=== PATIENT | female | born 1995 | race Caucasian/White ===

== ENCOUNTER 2016-08-24 10:23 | Emergency (ER) | payer OTHER ==
[~2016-08-24] VITALS: Ht 167.6 cm; Wt 74.3 kg
[~2016-08-24 10:23] MED LIST: [UNRECOGNIZED DRUG - OTHER] PO
[2016-08-24 10:26] VITALS: TEMP 37.7; Ht 167.6 cm; Wt 74.3 kg
[2016-08-24] MEDS ORDERED: BCPILLS PO (10:45)
[2016-08-24] MEDS ORDERED: CEPH500T PO (10:45)
[2016-08-24] MEDS ORDERED: KETOROLAC TROMETHAMINE 30 MG/ML VIAL IV STA (10:46)
[2016-08-24] MEDS ORDERED: SODIUM CHLORIDE 0.9% 500ML 500 ML IV STA (10:55)
[2016-08-24] MEDS ORDERED: OPTIRAY 320 IV PRN (11:15)
[2016-08-24 11:20] LABS: BASO % 0.5 %; BASO ABS # 0.02 K/uL (0-0.2); COMPLETE YES; EOS % 0.2 %; HEMATOCRIT 36.2 % (37-47); IG% 0.2 %; LYMPH % 19.8 %; LYMPH ABS # 0.82 K/uL (1.2-3.4); MEAN CORPUSCULAR HEMOGLOBIN 29.6 pg (25-34); MEAN PLATELET VOLUME 9.5 fL (7.4-10.4); MONO % 22.5 %; NEUT % 56.8 %; PLATELET COUNT 172 K/uL (130-400); RED BLOOD COUNT 4.16 M/uL (4.2-5.4); WHITE BLOOD COUNT 4.14 K/uL (4.8-10.8)
[2016-08-24 11:36] LABS: BUN/CREATININE RATIO 8.6 (10-20); CALCIUM 8.6 mg/dl (8.5-10.1); CREATININE 0.81 mg/dl (0.60-1.20)
--- NOTE | 2016-08-24 13:18 | DIAGNOSTIC IMAGING REPORT ---
CT NECK WITH INTRAVENOUS CONTRAST, MAXILLOFACIAL CT WITH INTRAVENOUS CONTRAST HISTORY: Left FACIAL SWELLING, THROAT PAIN, FEVER TECHNIQUE: Multiaxial CT images of the neck and maxillofacial region were performed following the use of intravenous contrast. Coronal images of the facial region were also obtained. COMPARISON STUDY: None. FINDINGS: There is no definite mass and hyperenhancing left parotid gland in comparison to the right. There is surrounding edema/fat stranding at the left parotid gland. The left parotid gland duct is normal in course and caliber. There is left-sided cervical lymphadenopathy. This is likely reactive. The thyroid gland enhances normally. The major cervical vessels are patent. The major mucosal surfaces are intact. The epiglottis and prevertebral soft tissues are normal in thickness. There are no loculated fluid collections to suggest an abscess. The submandibular glands and right parotid gland are within normal limits. The orbits are unremarkable. The visualized brain parenchyma is also unremarkable. Paranasal sinuses and mastoid air cells are clear. No fractures within the visualized osseous structures. IMPRESSION: 1. Edematous and hyperenhancing left parotid gland consistent with a parotitis. 2. Left-sided cervical lymphadenopathy is likely reactive. 3. No fracture within the facial bones. Electronically signed by: Kwaku Hannah M.D. 08/24/2016 1:17 PM Dictated Date/Time: 08/24/2016 1:00 PM
[2016-08-24] MEDS ORDERED: AMOX875T PO (13:43)
[2016-08-24] MEDS ORDERED: TRAM-10 PO (13:43)
[2016-08-24 14:03] VITALS: BP 104/69; PULSE 62; O2SAT 98
--- NOTE | 2016-08-24 16:07 | EMERGENCY ROOM VISIT NOTE ---
History First contact with patient: 10:36 Chief Complaint: FACIAL PAIN/INJURY Stated Complaint: SWOLLEN FACE, EAR ACHE, SWOLLEN THROAT History of Present Illness The patient is a 21 year old female who presents to the Emergency Room with complaints of left facial swelling, earache, swollen throat and neck discomfort. The patient reports that she started to develop facial swelling 2 days ago. The patient reports that she did have a fever this morning, and took Tylenol at 9 AM. She also reports that a friend had similar swelling that started 3 days before her. The patient denies any prior history of parotid disease, sialoadenitis or strep throat. She has not been to [facility] for evaluation. She rates her discomfort a 4 out of 10. Review of Systems HEENT: Denies dizziness, visual problems, hearing loss, tinnitus. Denies difficulty swallowing or oral lesions. PULMONARY: Denies significant cough, shortness of breath, sputum production or hemoptysis. CARDIOVASCULAR: Denies chest pain, palpitations, dyspnea on exertion, orthopnea or peripheral edema. GASTROINTESTINAL: Denies diarrhea, constipation, nausea, vomiting, or abdominal pain. GENITOURINARY: Denies dysuria, frequency, urgency or nocturia. NEUROLOGIC: Denies history of epilepsy, CVA, TIA or chronic headaches. MUSCULOSKELETAL: Denies history of joint tenderness/swelling. SKIN: Denies rashes or lesions. PSYCHIATRIC: Denies history of depression or mental illness. ENDOCRINE: Denies history of diabetes or thyroid disorders. Past Medical/Surgical History Medical Problems: (1) No significant past medical history Surgical Problems: (1) History of wisdom tooth extraction Family History No significant family history Social History Smoking Status: Never Smoker Alcohol Use: occasionally Drug Use: none Marital Status: single Housing Status: lives with roommate Occupation Status: [employer] student Current/Historical Medications Scheduled Amoxicillin & Pot Clavulanate (Augmentin 875-125 mg), 1 TAB PO BID Control Pills ( Control Pills), 1 TAB PO DAILY Cephalexin (Cephalexin), 500 MG PO BID Scheduled PRN Tramadol (Ultram), 1-2 TAB PO Q4H PRN for Pain Allergies Coded Allergies: No Known Allergies (Unverified , 08/24/16) Physical Exam Vital Signs Date Time Temp Pulse Resp B/P Pulse Ox O2 Delivery O2 Flow Rate FiO2 08/24/16 14:03 62 16 104/69 98 08/24/16 12:31 67 16 114/75 97 Room Air 08/24/16 10:26 37.7 96 17 127/84 97 Room Air Pain Rating (0-10): 3.0 Physical Exam CONSTITUTIONAL: Healthy and well nourished. Alert and oriented X 3 with positive affect. Patient does not appear acutely ill or in any significant distress. HEENT: Examination shows left facial edema and tenderness to palpation. Pupils equal, round and reactive. Nares and ears are clear. No scleral icterus, subconjunctival hemorrhage or conjunctival injection OROPHARYNX: Patient has mild posterior pharyngeal erythema without tonsillar hypertrophy or exudates. No palpable ductal stones appreciated. No evidence for Osmel's angina or retropharyngeal abscess. NECK: Full active range of motion without discomfort. No nuchal rigidity. LYMPHATICS: The patient does have mild anterior cervical chain adenopathy. RESPIRATORY: Clear to auscultation bilaterally with no wheezing, crackles, rhonchi or stridor. CARDIOVASCULAR: Regular rate and rhythm with no murmurs, rubs or gallops. GASTROINTESTINAL: Bowel sounds present in all quadrants. Soft and nontender to palpation without evidence for hepatosplenomegaly. MUSCULOSKELETAL: Full range of motion of all joints without discomfort. INTEGUMENTARY: No rash or other significant dermatologic conditions noted. HEMATOLOGIC: No obvious petechiae. NEUROLOGIC: No focal neurologic deficits noted. Medical Decision & Procedures ER Provider Diagnostic Interpretation: CT of the neck and facial region with IV contrast shows a left parotiditis and left-sided cervical lymphadenopathy. Radiologist report is as follows: CT NECK WITH INTRAVENOUS CONTRAST, MAXILLOFACIAL CT WITH INTRAVENOUS CONTRAST HISTORY: Left FACIAL SWELLING, THROAT PAIN, FEVER TECHNIQUE: Multiaxial CT images of the neck and maxillofacial region were performed following the use of intravenous contrast. Coronal images of the facial region were also obtained. COMPARISON STUDY: None. FINDINGS: There is no definite mass and hyperenhancing left parotid gland in comparison to the right. There is surrounding edema/fat stranding at the left parotid gland. The left parotid gland duct is normal in course and caliber. There is left-sided cervical lymphadenopathy. This is likely reactive. The thyroid gland enhances normally. The major cervical vessels are patent. The major mucosal surfaces are intact. The epiglottis and prevertebral soft tissues are normal in thickness. There are no loculated fluid collections to suggest an abscess. The submandibular glands and right parotid gland are within normal limits. The orbits are unremarkable. The visualized brain parenchyma is also unremarkable. Paranasal sinuses and mastoid air cells are clear. No fractures within the visualized osseous structures. IMPRESSION: 1. Edematous and hyperenhancing left parotid gland consistent with a parotitis. 2. Left-sided cervical lymphadenopathy is likely reactive. 3. No fracture within the facial bones. Laboratory Results 08/24/16 11:08 Red Blood Count 4.16, Mean Corpuscular Volume 87.0, Mean Corpuscular Hemoglobin 29.6, Mean Corpuscular Hemoglobin Concent 34.0, Mean Platelet Volume 9.5, Neutrophils (%) (Auto) 56.8, Lymphocytes (%) (Auto) 19.8, Monocytes (%) (Auto) 22.5, Eosinophils (%) (Auto) 0.2, Basophils (%) (Auto) 0.5, Neutrophils # (Auto ) 2.35, Lymphocytes # (Auto) 0.82, Monocytes # (Auto) 0.93, Eosinophils # (Auto ) 0.01, Basophils # (Auto) 0.02 08/24/16 11:08 Test 08/24/16 11:08 08/24/16 11:30 White Blood Count 4.14 K/uL (4.8-10.8) Red Blood Count 4.16 M/uL (4.2-5.4) Hemoglobin 12.3 g/dL (12.0-16.0) Hematocrit 36.2 % (37-47) Mean Corpuscular Volume 87.0 fL (80-100) Mean Corpuscular Hemoglobin 29.6 pg (25-34) Mean Corpuscular Hemoglobin Concent 34.0 g/dl (32-36) Platelet Count 172 K/uL (130-400) Mean Platelet Volume 9.5 fL (7.4-10.4) Neutrophils (%) (Auto) 56.8 % Lymphocytes (%) (Auto) 19.8 % Monocytes (%) (Auto) 22.5 % Eosinophils (%) (Auto) 0.2 % Basophils (%) (Auto) 0.5 % Neutrophils # (Auto) 2.35 K/uL (1.4-6.5) Lymphocytes # (Auto) 0.82 K/uL (1.2-3.4) Monocytes # (Auto) 0.93 K/uL (0.11-0.59) Eosinophils # (Auto) 0.01 K/uL (0-0.5) Basophils # (Auto) 0.02 K/uL (0-0.2) RDW Standard Deviation 43.9 fL (36.4-46.3) RDW Coefficient of Variation 13.9 % (11.5-14.5) Immature Granulocyte % (Auto) 0.2 % Immature Granulocyte # (Auto) 0.01 K/uL (0.00-0.02) Erythrocyte Sedimentation Rate 8 mm/hr (0-21) Anion Gap 9.0 mmol/L (3-11) Est Creatinine Clear Calc Drug Dose 114.2 ml/min Estimated GFR () 121.2 Estimated GFR (Non- 104.6 BUN/Creatinine Ratio 8.6 (10-20) Calcium Level 8.6 mg/dl (8.5-10.1) Influenza Type A Antigen Neg for Influ A (NEG) Influenza Type B Antigen Neg for Influ B (NEG) The above labs were reviewed. CBC, partial renal profile and sedimentation rate were normal. Influenza screen is negative. Medications Administered Medications (Trade) Dose Ordered Sig/Rod Route Start Time Stop Time Status Last Admin Dose Admin Ketorolac Tromethamine 30 mg 30 mg NOW STAT IV 08/24/16 10:46 08/24/16 10:55 DC 08/24/16 11:29 30 MG Sodium Chloride (Nss 500ml) 500 ml @ 999 mls/hr Q31M STAT IV 08/24/16 10:55 08/24/16 11:25 DC 08/24/16 11:29 999 MLS/HR ED Course Patient history and physical exam were performed. Nurse's notes were reviewed. Vital signs were reviewed, showing a temperature of 37.7C. The patient is otherwise normotensive and with normal heart rate. IV access was established, and labs were drawn. The patient was hydrated with normal saline, and received IV Toradol for pain. CT with IV contrast of the neck and facial bones shows evidence for an acute parotitis. Clinical exam also does not suggest retropharyngeal abscess or Osmel's angina. I did explain to the patient that this could certainly be a straightforward parotitis, however I discussed the possibility of mumps. The patient reports that her immunizations are up-to- date that she is aware of. The case was further discussed with Kimberly Rouse , infectious disease. She did suggest that I order a mumps IgG and IgM test, and keep the patient quarantined until these results are completed. The patient may use her follow-up with [facility] next Sunday for further reassessment, or may call the emergency department on Sunday for test results. The patient was offered a prescription for Augmentin, but reports that she already received a prescription for Keflex from [facility] . The patient was happy with plan of care, voiced understanding of all discharge instructions, and denied any significant discomfort at the time of discharge. Medical Decision Differentials considered included acute bacterial versus viral etiology, such as facial abscess, dental abscess, retropharyngeal abscess, Osmel's angina, mumps, and sialoadenitis. Impression Primary Impression: Acute parotitis Departure Information Dispostion Home / Self-Care Condition GOOD Prescriptions Amoxicillin & Pot Clavulanate (Augmentin 875-125 mg) 1 Tab Tab 1 TAB PO BID for 10 Days, #20 TAB Prov: Len Pompa PA 08/24/16 Tramadol (Ultram) 50 Mg Tab 1-2 TAB PO Q4H Y for Pain, #20 TAB For Initial Treatment Prov: Len Pompa PA 08/24/16 Forms HOME CARE DOCUMENTATION FORM, IMPORTANT VISIT INFORMATION Patient Instructions My [facility] Additional Instructions Complete all Augmentin antibiotics as prescribed. Intermittently apply a warm moist compress to the face. Ibuprofen 800 mg and/or Tylenol 1000 mg every 8 hours. You may also alternate these medications for more effective pain relief: Ibuprofen --4 HRS--> Tylenol --4 HRS--> ibuprofen --4 HRS--> Tylenol .... Ultram if needed for worse pain. We will contact you in 2-3 days if your test come back positive for mumps. Follow-up with [facility] on Sunday for reevaluation, and to review your lab work. You are not allowed to return to classes until [facility] rechecks your labs, or if our testing comes back negative. You may call us on Sunday for lab results: .
[2016-08-26 19:02] LABS: MUMPS IgG VALUE 1.73; MUMPS VIRUS ANTIBODY IGM <1:20
== END 2016-08-24 14:05 | disposition home or self-care (01) ==
LOC: C.EDB 10:26 → C.EDA 14:05
DX: K11.21 Acute sialoadenitis (principal)

== ENCOUNTER 2017-09-29 12:14 | Emergency (ER) | payer OTHER ==
[~2017-09-29] VITALS: Ht 167.6 cm; Wt 75.0 kg
[~2017-09-29 12:14] MED LIST changes: +BCPILLS PO; +CEPH500T PO; -[UNRECOGNIZED DRUG - OTHER] PO
[2017-09-29 12:15] VITALS: TEMP 37; Ht 167.6 cm; Wt 75.0 kg
[2017-09-29 13:13] VITALS: BP 106/51; PULSE 60; O2SAT 100
--- NOTE | 2017-09-29 13:25 | DIAGNOSTIC IMAGING REPORT ---
R HAND MIN 3 VIEWS ROUTINE CLINICAL HISTORY: Right ring finger pain and swelling. COMPARISON: None FINDINGS: Alignment of the right hand is anatomic. There is moderate soft tissue swelling of the right fourth finger. There is a transverse lucency within the lateral base of the middle phalanx of the right fourth finger. This may reflect an acute nondisplaced fracture. No additional fractures are identified on this exam. IMPRESSION: Transverse lucency within the lateral base of the middle phalanx of the right fourth finger which may reflect an acute nondisplaced fracture. Electronically signed by: Jamari Dickey M.D. 09/29/2017 1:24 PM Dictated Date/Time: 09/29/2017 1:22 PM
--- NOTE | 2017-09-30 15:24 | EMERGENCY ROOM VISIT NOTE ---
ED Visit Note First contact with patient: 12:18 Chief Complaint: Right ring finger pain. History of Present Illness: Ms. Lewis is a 22-year-old white female who ambulates into the ED complaining of right finger pain and swelling. Patient reports last night she was in a public bathroom. She reports she was coming out of the stall and another person was attempting to go into the stall. She reports the stall door was closed on her right ring finger. This occurred approximately 12 hours prior to arrival at the hospital. Currently patient is complaining of a throbbing pain over the proximal phalanx and the PIP joint area. She rates her discomfort 2/10. Her pain is nonradiating. Her pain worsens with palpation and flexion and extension of the PIP joint. She has not identified any alleviating factors related to the pain. She has not taken medications for pain prior to arrival at the hospital. She denies any other associated symptoms including other hand pain, other finger pain, finger weakness/numbness/tingling and any previous significant injuries or surgeries to the right ring finger. Review of Systems: As noted above in history of present illness. Past Medical History: Patient denies. Current Medications: control. Allergies to Medications: Patient denies. Social History: Patient is currently a university student; she feels safe in her home environment; she admits to tobacco use and denies alcohol use. Physical Examination: Vital Signs: Date Time Temp Pulse Resp B/P (MAP) Pulse Ox O2 Delivery O2 Flow Rate FiO2 09/29/17 12:15 37.0 66 16 104/61 97 GENERAL: 22-year-old female in mild distress due to pain, nontoxic-appearing, afebrile and hemodynamically stable. NEUROLOGICAL: Awake, alert and oriented to person, place and time. Answering questions appropriately and following commands. Normal gait. Good hand eye coordination. SKIN: Warm, dry and pink. Right Ring Finger: Patient has 3 subcentimeter superficial lacerations to the finger around the PIP joint. No active bleeding. RIGHT HAND: Soft tissue injury as noted above. Patient has no gross bony deformity but there is swelling and early ecchymosis over the proximal phalanx and PIP joint. Patient has no tenderness throughout the hand except over the ring finger PIP and proximal femoral necks. I do not appreciate any bony deformity or crepitus. She has full range of motion of the MCP joint and decreased range of motion at the PIP joint. With the PIP joint stabilize she does have full range of motion in flexion and extension of the DIP joint. Throughout the finger the skin was warm and pink and capillary refill is brisk. She is able to distinguish light sensations through all dermatomes. ED Course: Patient is assessed as noted above. Patient's medication list was reviewed. Patient was offered pain medication and refused; she was given ice for pain and swelling. Right Hand X-Rays: Were read by myself and shows no acute fractures or dislocations. LATE NOTE: It was noted that the radiologist saw a trace lucency through the lateral base of the middle phalanx which may reflect an acute nondisplaced fracture. Patient's wounds were cleansed with antibacterial soap and covered with a bacitracin dressing. Patient was placed in a metal finger splint. Patient was educated about today's findings and instructed on her treatment plan ; she verbalized understanding and agreement with this plan. Clinical Impression: Right ring finger contusion. Right ring finger superficial lacerations. Disposition: Patient discharged to home in stable condition; prior to departure she was reassessed and subjectively reported she was feeling the same. Plan: Patient was encouraged alternate ibuprofen and acetaminophen every 6 hours as needed for pain. Patient is educated on wound care and signs of infection. Patient is encouraged to use ice over the area of pain and swelling 5-6 times a day for 20-30 minutes. Patient was encouraged to use splint for 3-6 days or until pain-free. Patient was encouraged to follow-up at [facility] or return to the ED for worsening pain, any signs of infection or any new/concerning symptoms. LATE NOTE: Patient was recontacted and informed of the radiologist impression and was encouraged to follow-up with Dr. Alvarado, youth care specialist, for definitive care and treatment.
== END 2017-09-29 13:15 | disposition home or self-care (01) ==
LOC: C.EDB 12:14 → C.EDD 13:15
DX: S60.041A Contusion of right ring finger without damage to nail, initial encounter (principal); S61.214A Laceration without foreign body of right ring finger without damage to nail, initial encounter; W23.0XXA Caught, crushed, jammed, or pinched between moving objects, initial encounter; F17.200 Nicotine dependence, unspecified, uncomplicated; Z79.3 Long term (current) use of hormonal contraceptives